=== PATIENT | male | born 1940 | race Caucasian/White ===

== ENCOUNTER → 2016-12-09 | Outpatient (CLI) | payer MEDICARE, OTHER ==
[~2016-12-09] MED LIST: ACETAMINOPHEN325 MG PO; ACETAMINOPHEN650 M1 PO; ASPIRIN ENTERI325 M1 PO; ASPIRIN325 M1 PO; BAYER ASPIRIN325 M1 PO; CIPRO250 MG PO; COLACE PO; COUMADIN PO; COUMADIN4 MG PO; COUMADIN5 MG PO; CUBICIN IV; CVS PAIN RELIE PO; DULERA 100 MCG/13 GM IN; FLOMAX0.4 M1 PO; GAVISCON1 TAB PO; HYDROCODON-ACE1 EAC7 PO; LEVAQUIN PO; LIPITOR; LIPITOR PO; LIPITOR20 MG PO; LORTAB 7.5-5001 TAB PO; LOVENOX80 MG/0.8 INJ; MENTAX TOP; MILK OF MAGNESIA PO; MULTIVITAMIN1 UDCAP PO; NEPHROCAPS CAPSU1 MG PO; ONDANSETRON HCL4 MG PO; RAPAFLO8 MG PO; TAMIFLU75 M1 PO; VITAMIN B COMPLEX
--- NOTE | ~2016-12-09 | CT71 ---
[facility] A Service of [facility] RADIOLOGY TEXT RESULTS PATIENT: JOHNNY SUTTON [facility] UNIT #: [id number] AGE: [address]: Jose Colbert MD SEX: M ORDER DR: [id number] [place] [id number] [facility]. [place], [place] [address] [id number] O MR#: [id number] Acc #: [id number] NAME: JOHNNY SUTTON : 1940 SEX: M STUDY DATE/TIME: 12/09/2016 7:53 UNIT: [facility] ROOM: STUDY DESCRIPTION: CT Head Wo Contrast Attending Physician: Jose Colbert M.D. Ordering Physician: Jose Colbert M.D. Primary Care Physician: Adelso Mayfield M.D. MEDICAL IMAGING REPORT This report is preliminary unless electronic signature is present EXAM CT head without contrast, 12/09/2016 HISTORY A 76-year-old male with headaches for 1 year. History of bladder cancer. COMPARISON STUDIES None. TECHNIQUE This CT exam was performed with one or more of the following radiation dose reduction techniques: automatic exposure control, adjustment of mA and/or kV according to patient size, and iterative reconstruction. Routine unenhanced axial images performed through the brain. FINDINGS No hemorrhage, acute infarction, mass lesion, or abnormal extraaxial fluid collection. No midline shift or focal mass effect. Ventricular system is normal in size and configuration. Mild generalized atrophy. There is mild patchy hypoattenuation in the supratentorial white matter bilaterally, most likely reflecting chronic small vessel disease. Further evaluation is warranted, consider followup with a contrast enhanced brain MRI. No acute bony abnormality. There is a mucous retention cyst in the right frontal sinus. Mucosal thickening right sphenoid sinus. Visualized mastoid air cells are clear. IMPRESSION 1. No acute intracranial abnormality. 2. Mild generalized age-related atrophy. 3. Mild patchy areas of hypoattenuation in the supratentorial white matter bilaterally. This most likely represents changes of [facility] A Service of [facility] RADIOLOGY TEXT RESULTS PATIENT: JOHNNY SUTTON LOCATION: [facility] : 39 UNIT #: [id number] AGE: [address]: Jose Colbert MD SEX: M ORDER DR: chronic small vessel disease, but is technically indeterminate. If there is clinical suspicion for underlying metastatic disease, then further characterization with contrast enhanced brain MRI is recommended. 4. Mucous retention cyst right frontal sinus. Mild mucosal thickening right sphenoid sinus. Dictated by... Pa Crowley M.D. THIS IS AN ELECTRONICALLY VERIFIED REPORT Pa Crowley M.D. at 12/10/2016 8:24 AM BUDDY/isabel TD: 12/09/2016 13:17 JOB #: [id number] MEDICAL IMAGING REPORT Page 1 of 1 COPY
[2016-12-09 12:29] LABS: POC - CREATININE 2.68 mg/dL (0.64-1.27)
== END | disposition home or self-care (01) ==
LOC: CCAT 07:13
PROVIDERS: Family Medicine
DX: R51 Headache (principal); G31.9 Degenerative disease of nervous system, unspecified; J34.1 Cyst and mucocele of nose and nasal sinus; J34.89 Other specified disorders of nose and nasal sinuses
CPT/HCPCS: 70450; 82565

== ENCOUNTER → 2016-12-16 | Outpatient (CLI) | payer MEDICARE, OTHER ==
--- NOTE | ~2016-12-16 | MR18 ---
[facility] A Service of [facility] & [facility] RADIOLOGY TEXT RESULTS PATIENT: JOHNNY SUTTON LOCATION: [facility] : 38 UNIT #: [id number] AGE: [address]: Jose Colbert MD SEX: M ORDER DR: [id number] [facility] [address]. [place], [place] [address] [id number] O MR#: [id number] Acc #: [id number] NAME: JOHNNY SUTTON : 1940 SEX: M STUDY DATE/TIME: 12/16/2016 10:21 UNIT: [facility] ROOM: STUDY DESCRIPTION: MR Brain Wo Contrast Attending Physician: Jose Colbert M.D. Ordering Physician: Jose Colbert M.D. Primary Care Physician: Jose Colbert M.D. MRI CENTER REPORT This report is preliminary unless electronic signature is present. EXAM Brain MRI without 12/16/[address] scan on 12/09/2016. Areas of white matter low attenuation. Chronic headaches for 1 year, usually a daily occurrence. EGFR 25, so contrast not given. The patient does have a history of bladder cancer 2013. TECHNIQUE MRI of the brain was performed without contrast using routine 1.5T imaging technique. COMPARISON STUDIES Head CT comparison 12/09/2016 FINDINGS Patient not given contrast due to renal failure. Lack of contrast media does limit evaluation for intracranial metastatic disease. There is no evidence for a recent ischemic insult on the diffusion series. No Chiari I malformation. No intracranial mass effect. No extraaxial fluid collection. The basilar cisterns are patent. Mild generalized atrophy. Prominence of perivascular spaces in general. There is moderate white matter disease, too numerous to count foci of white matter signal abnormality in the subcortical deep and periventricular white matter. This is nonspecific but likely due to small vessel disease in age group. No intracranial mass effect. Tiny lacunes in the basal ganglia thalami. Patchy signal abnormality of the brain stem also likely due to small vessel disease. Allowing for hypoplastic distal right vertebral artery, the major intracranial flow voids are maintained. The patient probably has an anterior dominant circulation with bilateral posterior STS. [facility] A Service of [facility] & [facility] RADIOLOGY TEXT RESULTS PATIENT: JOHNNY SUTTON LOCATION: [facility] : 39 UNIT #: [id number] AGE: [address]: Jose Colbert MD SEX: M ORDER DR: communicators seen on axial imaging. The patient has had cataract surgery on the right. Partial opacification of the right anterior ethmoid air cells but no sinus air-fluid level and the mastoid air cells are clear. There is no MRI evidence for intracranial hemorrhage. IMPRESSION Atrophy and probable sequela of small vessel disease. Otherwise essentially negative MRI of the brain without contrast. Contrast not given secondary to the patient's renal insufficiency. EGFR measured at 25. Dictated by... Toshia Gonzalez M.D. THIS IS AN ELECTRONICALLY VERIFIED REPORT Toshia Gonzalez M.D. at 12/16/2016 5:34 PM Vladimir TD: 12/16/2016 15:31 JOB #: [id number] MRI CENTER REPORT Page 1 of 1 COPY
[2016-12-16 11:26] LABS: POC - CREATININE 2.64 mg/dL (0.64-1.27)
== END | disposition home or self-care (01) ==
LOC: CMRI 09:25
PROVIDERS: Family Medicine
DX: R51 Headache (principal); R93.0 Abnormal findings on diagnostic imaging of skull and head, not elsewhere classified; G31.9 Degenerative disease of nervous system, unspecified; N28.9 Disorder of kidney and ureter, unspecified
CPT/HCPCS: 70551; 82565